=== PATIENT | female | born 1995 | race Two or more races ===

== ENCOUNTER 2020-11-23 09:49 | Emergency (ER) | payer MEDICARE, MEDICAID ==
[~2020-11-23] VITALS: Ht 170.2 cm; Wt 81.6 kg
[2020-11-23 09:52] VITALS: BP 134/87
[2020-11-23 10:35] LABS: Urine Bacteria FEW /hpf (None Seen); Urine Blood TRACE /uL (Negative); Urine Mucus FEW (None Seen); Urine Specific Gravity 1.027 (1.001-1.035); Urine WBC 6 /hpf (0 - 5)
[2020-11-23] MEDS ORDERED: AZITHROMYCIN 250 MG TAB PO ONE (11:15)
[2020-11-23] MEDS ORDERED: cefTRIAXone SODIUM 250 MG VL IM ONE (11:15)
== END 2020-11-23 12:05 | disposition home or self-care (01) ==
LOC: ER 09:49
DX: N39.0 Urinary tract infection, site not specified (principal); Z20.2 Contact with and (suspected) exposure to infections with a predominantly sexual mode of transmission; Z32.02 Encounter for pregnancy test, result negative; Z98.51 Tubal ligation status
CPT/HCPCS: 81001; 81025; 87210; 96372; 99283; J0696